=== PATIENT | female | born 1970 | race Caucasian/White ===

== ENCOUNTER 2023-11-09 01:35 | Emergency (ER) | payer MEDICAID ==
[~2023-11-09] VITALS: Ht 160 cm; Wt 80.0 kg
[2023-11-09 02:01] VITALS: BP 131/71; PULSE 96; RESP 14; TEMP 98.6; O2SAT 99
[2023-11-09] MEDS ORDERED: FLUORESCEIN SODIUM 1MG/STRIP EACHEYE ONE (02:30)
[2023-11-09] MEDS ORDERED: ERYT1OIN6 LEFTEYE (02:39)
== END 2023-11-09 02:49 | disposition home or self-care (01) ==
LOC: ER 01:46
DX: S00.212A Abrasion of left eyelid and periocular area, initial encounter (principal); E11.9 Type 2 diabetes mellitus without complications; X58.XXXA Exposure to other specified factors, initial encounter; Y93.89 Activity, other specified; Y92.89 Other specified places as the place of occurrence of the external cause; Y99.8 Other external cause status
CPT/HCPCS: 82962; 99283